=== PATIENT | female | born 1975 | race Caucasian/White ===

== ENCOUNTER → 2017-06-29 | Outpatient (CLI) | payer BC ==
[~2017-06-29] MED LIST: ALBUTEROL IH; MEDR150V IM; TRAM50TA4 PO
== END | disposition home or self-care (01) ==
LOC: SHCH 13:04
PROVIDERS: ATTEND Internal Medicine Cardiovascular Disease
DX: R00.2 Palpitations (principal)
CPT/HCPCS: 93306

== ENCOUNTER → 2017-06-29 | Outpatient (CLI) | payer SELFPAY | END | disposition home or self-care (01) | LOC: OIH 13:03 | PROVIDERS: ATTEND Internal Medicine Cardiovascular Disease | DX: Z13.6 Encounter for screening for cardiovascular disorders (principal) | CPT/HCPCS: 75571 ==

== ENCOUNTER → 2020-05-24 | Outpatient (CLI) | payer BC ==
[~2020-05-24] MED LIST changes: +ACET1TAB25 PO; +BACL10TA PO; +CYCL10 PO; +TRAM1TAB PO; -TRAM50TA4 PO; +[UNRECOGNIZED DRUG - OTHER] TD
== END | disposition home or self-care (01) ==
LOC: OIH 09:57
PROVIDERS: ATTEND Neurological Surgery
DX: M43.22 Fusion of spine, cervical region (principal)
CPT/HCPCS: 72040